=== PATIENT | female | born 1965 | race Caucasian/White ===

== ENCOUNTER 2024-06-13 06:38 | Day surgery (SDC) | payer BC ==
[2024-06-13] MEDS ORDERED: LIDOCAINE HCL 2% 100 MG/5 ML IJ ONE (06:39)
[2024-06-13] MEDS ORDERED: Depo-Medrol 40 MG/ML IM ONE (06:39)
[2024-06-13] MEDS ORDERED: propofoL IV ONE (08:30)
--- NOTE | 2024-06-13 19:25 | XRAY ---
15 seconds of fluoroscopy was used in surgery for a bilateral L4-S1 MBB.
--- NOTE | 2024-06-13 19:29 | XRAY ---
Indication: Bilateral L4-S1 MBB. Intraoperative fluoroscopy provided for 15 seconds. Single digital spot image submitted for interpretation demonstrates posterior needle tips projecting over expected left and right L4-S1 nerve roots. Correlate with intraoperative findings/report.
== END 2024-06-13 09:08 | disposition home or self-care (01) ==
LOC: SDC-PAIN 06:38
PROVIDERS: ATTEND Psychiatry & Neurology Pain Medicine
DX: M47.817 Spondylosis without myelopathy or radiculopathy, lumbosacral region (principal); R73.03 Prediabetes
CPT/HCPCS: 64493; 64494; 72020; 82947; J2704

== ENCOUNTER 2024-09-26 06:42 | Day surgery (SDC) | payer BC ==
[2024-09-26] MEDS ORDERED: Sodium Chloride 0.9(Preservative Free) 10 ML IJ ONE (06:43)
[2024-09-26] MEDS ORDERED: BENADRYL 50 MG/ML ONE (08:17)
[2024-09-26] MEDS ORDERED: Zofran 4 MG/2 ML VIAL ONE (08:17)
[2024-09-26] MEDS ORDERED: propofoL IV ONE (08:48)
[2024-09-26] MEDS ORDERED: DILAUDID 0.5 MG/0.5 ML SYRINGE ONE (09:11)
--- NOTE | 2024-09-26 10:35 | XRAY ---
Indication: Right L4-S1 transforaminal NATASHA. Intraoperative fluoroscopy provided for 27 seconds. 4 digital spot images submitted for interpretation demonstrates posterior needle tips projecting over expected right L4 and L5 nerve roots. Small amount of contrast injected for needle tip placement. Correlate with intraoperative findings/report.
--- NOTE | 2024-09-26 10:35 | XRAY ---
27 seconds of fluoroscopy was used in surgery for a right L4-S1 transforaminal NATASHA.
[2024-09-26] MEDS ORDERED: Lactated Ringers 1,000 ML IV ONE (12:15)
== END 2024-09-26 09:32 | disposition home or self-care (01) ==
LOC: SDC-PAIN 06:42
PROVIDERS: ATTEND Psychiatry & Neurology Pain Medicine
DX: M54.16 Radiculopathy, lumbar region (principal); E11.9 Type 2 diabetes mellitus without complications